=== PATIENT | female | born 1995 | race Two or more races ===

== ENCOUNTER 2017-10-05 21:12 | Emergency (ER) | payer MEDICAID ==
[~2017-10-05] VITALS: Ht 154.9 cm; Wt 61.6 kg
[2017-10-05 22:45] LABS: PATH.CAST-FLAG NOT PRESENT; SPERM-FLAG NOT PRESENT; SRC-FLAG NOT PRESENT; XTAL-FLAG NOT PRESENT; YLC-FLAG NOT PRESENT
[2017-10-05 22:55] LABS: HEMATOCRIT 42.1 % (34.6-47.8); WHITE BLOOD COUNT 9.4 x10^3/uL (3.4-10)
[2017-10-05 23:09] LABS: ASPARTATE AMINO TRANSFERASE 11 U/L (15-37); BLOOD UREA NITROGEN 11 mg/dL (7-18)
[2017-10-06 00:47] VITALS: BP 113/70
== END 2017-10-06 00:50 | disposition home or self-care (01) ==
LOC: ED 23:32
DX: O21.9 Vomiting of pregnancy, unspecified (principal); Z3A.01 Less than 8 weeks gestation of pregnancy
CPT/HCPCS: 36415; 76856; 80053; 81001; 84702; 85025; 99285

== ENCOUNTER 2017-10-09 19:22 | Emergency (ER) | payer MEDICAID ==
[~2017-10-09] VITALS: Ht 144.8 cm; Wt 61.0 kg
[2017-10-09 19:28] VITALS: BP 120/77
[2017-10-09 20:35] LABS: HEMATOCRIT 39.6 % (34.6-47.8); HEMOGLOBIN 13.5 g/dL (11.7-16.4); WHITE BLOOD COUNT 7.5 x10^3/uL (3.4-10)
[2017-10-09 20:40] LABS: BLOOD UREA NITROGEN 10 mg/dL (7-18)
[2017-10-09 21:04] LABS: PATH.CAST-FLAG NOT PRESENT; SPERM-FLAG NOT PRESENT; SRC-FLAG NOT PRESENT; XTAL-FLAG NOT PRESENT; YLC-FLAG NOT PRESENT
== END 2017-10-09 21:38 | disposition home or self-care (01) ==
LOC: ED 21:31
DX: O03.9 Complete or unspecified spontaneous abortion without complication (principal); Z3A.01 Less than 8 weeks gestation of pregnancy
CPT/HCPCS: 36415; 76801; 80048; 81001; 82040; 84702; 85025; 86901; 87086; 99285

== ENCOUNTER 2017-12-27 09:09 | Emergency (ER) | payer MEDICAID ==
[~2017-12-27] VITALS: Ht 152.4 cm; Wt 59.8 kg
[2017-12-27 09:11] VITALS: BP 110/73
[2017-12-27 10:38] LABS: MICROSCOPIC NOT IND
[2017-12-27 10:39] LABS: CULTURE INDICATED? NO
== END 2017-12-27 11:32 | disposition home or self-care (01) ==
LOC: ED 09:46
DX: O20.0 Threatened abortion (principal); Z3A.11 11 weeks gestation of pregnancy
CPT/HCPCS: 36415; 76801; 81003; 84702; 86901; 99285